=== PATIENT | male | born 1990 ===

== ENCOUNTER 2017-07-29 03:10 | Emergency (ER) | payer SELFPAY ==
[2017-07-29 03:23] VITALS: O2SAT 99
--- NOTE | 2017-07-29 03:39 | C.PDOC ---
History Of Present Illness Patient presents to the ER with a complaint of intermittent LLQ pain for the past 2 days, associated with nausea, vomiting, and diarrhea. Denies fever or chills. Time Seen by Provider: 07/29/17 03:39 Chief Complaint (Nursing): Abdominal Pain History Per: Patient History/Exam Limitations: no limitations Onset/Duration Of Symptoms: Days, Intermittent Episodes Current Symptoms Are (Timing): Still Present Severity: Moderate Pain Scale Rating Of: 4 Location Of Pain/Discomfort: LLQ Radiation Of Pain To:: None Quality Of Discomfort: Unable To Describe Associated Symptoms: Nausea, Vomiting, Diarrhea. denies: Fever, Chills Exacerbating Factors: None Alleviating Factors: None Recent travel outside of the [place]: No Past Medical History Reviewed: Historical Data, Nursing Documentation, Vital Signs Vital Signs: Last Vital Signs Temp 97.4 F L 07/29/17 06:28 Pulse 59 L 07/29/17 06:28 Resp 16 07/29/17 06:28 BP 113/71 07/29/17 06:28 Pulse Ox 99 07/29/17 06:29 Family History: States: No Known Family Hx - Social History Hx Alcohol Use: Yes Hx Substance Use: No - Immunization History Hx Tetanus Toxoid Vaccination: No Hx Influenza Vaccination: No Hx Pneumococcal Vaccination: No Review Of Systems Constitutional: Negative for: Fever, Chills Gastrointestinal: Positive for: Nausea, Vomiting, Abdominal Pain, Diarrhea Physical Exam - Physical Exam Appears: Non-toxic Skin: Warm, Dry Head: Normacephalic Oral Mucosa: Moist Chest: Symmetrical, No Tenderness Cardiovascular: Rhythm Regular Respiratory: No Rales, No Rhonchi, No Wheezing Gastrointestinal/Abdominal: Soft, Tenderness (LLQ), No Guarding, No Rebound Neurological/Psych: Oriented x3 ED Course And Treatment - Laboratory Results Result Diagrams: 07/29/17 04:25 07/29/17 04:25 O2 Sat by Pulse Oximetry: 99 (Room air) Pulse Ox Interpretation: Normal Progress Note: CT abd/pel, blood work, and urinalysis ordered. IV fluids, morphine, pepcid, toradol, and zofran administered. Disposition Counseled Patient/Family Regarding: Studies Performed, Diagnosis, Need For Followup - Disposition Disposition: HOME/ ROUTINE Disposition Time: 03:39 Condition: FAIR Forms: 99Presents (Latvian) - Clinical Impression Clinical Impression: Abdominal pain - Scribe Statement The provider has reviewed the documentation as recorded by the Scribe Tomer Coats All medical record entries made by the Scribe were at my direction and personally dictated by me. I have reviewed the chart and agree that the record accurately reflects my personal performance of the history, physical exam, medical decision making, and the department course for this patient. I have also personally directed, reviewed, and agree with the discharge instructions and disposition. Physician Patient Turnover Patient Signed Over To: Dorie Duval Handoff Comments: pending ct result and dispostion
[2017-07-29] MEDS ORDERED: Lactated Ringer's 1,000 ML IV STA (03:50)
[2017-07-29 04:29] LABS: SQUAMOUS EPITHIAL < 1 /hpf (0-5); URINE AMORPHOUS SEDIMENT RARE /ul (<OCC); URINE BILIRUBIN NEGATIVE (NEGATIVE); URINE BLOOD NEGATIVE (NEGATIVE); URINE CLARITY Hazy (Clear); URINE COLOR Yellow (YELLOW); URINE GLUCOSE (UA) NORMAL (Normal); URINE LEUKOCYTE ESTERASE NEG Leu/uL (Negative); URINE NITRATE NEGATIVE (NEGATIVE); URINE PROTEIN NEGATIVE (NEGATIVE); URINE UROBILINOGEN NORMAL mg/dL (0.2-1.0)
[2017-07-29] MEDS ORDERED: Lactated Ringer's 1,000 ML ONE (04:34)
[2017-07-29 04:35] LABS: BASO # 0.1 K/uL (0.0-0.2); BASO % 0.6 % (0.0-2.0); EOS # 0.1 K/uL (0.0-0.7); MONO # 0.6 K/uL (0.0-0.8)
[2017-07-29 04:40] LABS: ALB/GLOB RATIO 1.4 (1.0-2.1); ALBUMIN 4.2 g/dL (3.5-5.0); ALT/SGPT 41 U/L (21-72); AST/SGOT 24 U/L (17-59); BLOOD UREA NITROGEN 13 mg/dL (9-20); CALCIUM 8.7 mg/dl (8.6-10.4); GFR AFRICAN-AMERICAN > 60; GFR NON-AFRICAN AMERICAN > 60; LIPASE 120 U/L (23-300)
[2017-07-29 04:43] LABS: EOS % 1.2 % (0.0-4.0); HEMOGLOBIN 16.4 g/dL (12.0-18.0); LYMPH # 3.1 K/uL (1.0-4.3); LYMPH % 31.1 % (20.0-40.0); MEAN CELL VOLUME 89.4 fL (80.0-94.0); MEAN CORPUSCULAR HEMOGLOBIN 32.1 pg (27.0-31.0); MEAN CORPUSCULAR HGB CONC 35.9 g/dL (33.0-37.0); MEAN PLATELET VOLUME 7.9 fL (7.2-11.7); MONO % 6.1 % (0.0-10.0); NEUT # 6.2 K/uL (1.8-7.0); NRBC % 0.1 % (0.0-2.0); RBC 5.11 Mil/uL (4.40-5.90); RED CELL DISTRIBUTION WIDTH 12.9 % (11.5-14.5); WHITE BLOOD COUNT 10.1 K/uL (4.8-10.8)
[2017-07-29] MEDS ORDERED: Iohexol 350mg/ml 100 ML ONE (06:02)
[2017-07-29 06:29] VITALS: RESP 16
[2017-07-29 07:27] VITALS: BP 109/62; PULSE 65; TEMP 97.5
--- NOTE | 2017-07-29 07:39 | CT ---
EXAM: CT Abdomen and Pelvis With Intravenous Contrast EXAM DATE/TIME: 07/29/2017 4:41 AM CLINICAL HISTORY: 27 years old, male; Pain; Abdominal pain; Localized; Left lower quadrant (llq); Additional info: Llq abd pain TECHNIQUE: Axial computed tomography images of the abdomen and pelvis with intravenous contrast. All CT scans at this facility use one or more dose reduction techniques, viz.: automated exposure control; ma/kV adjustment per patient size (including targeted exams where dose is matched to indication; i.e. head); or iterative reconstruction technique. Coronal and sagittal reformatted images were created and reviewed. CONTRAST: 100 mL of heyn066 administered intravenously. COMPARISON: No relevant prior studies available. FINDINGS: LOWER THORAX: No infiltrate seen in the lung bases. ABDOMEN: LIVER: No acute abnormality of the liver identified. GALLBLADDER AND BILE DUCTS: No CT evidence of acute cholecystitis. No evidence of significant biliary ductal dilatation. PANCREAS: No CT evidence of acute pancreatitis. SPLEEN: No acute abnormality of the spleen identified. ADRENALS: No acute abnormality of the adrenal glands identified. KIDNEYS AND URETERS: Kidneys have a mildly lobulated contour bilaterally, likely due to lobation (a normal variant) versus bilateral renal cortical scarring. No evidence of hydroureteronephrosis. STOMACH AND BOWEL: Focal wall thickening of the proximal stomach. This could represent pseudo-wall thickening due to underdistention/incomplete distension versus focal gastritis.Retained stool noted throughout the colon. Otherwise, no significant abnormality of the bowel is identified. No evidence of small bowel obstruction. No evidence of diffuse colitis/pancolitis. APPENDIX: Appendix is seen, and is within normal limits in appearance. PELVIS: BLADDER: Bladder is mildly dilated. REPRODUCTIVE: No acute abnormality of the reproductive organs is seen. ABDOMEN and PELVIS: INTRAPERITONEAL SPACE: No evidence of free intraperitoneal air or fluid. BONES/JOINTS: No acute fractures or other acute bony abnormality noted. SOFT TISSUES: No acute abnormality of the visualized soft tissues is seen. VASCULATURE: No evidence of abdominal aortic aneurysm. No evidence of periaortic hemorrhage. LYMPH NODES: No evidence of diffuse lymphadenopathy. IMPRESSION: - Underdistention versus wall thickening/focal gastritis involving the proximal stomach. Recommend clinical correlation. - Otherwise, no evidence of significant acute process. - See above for remaining findings.
== END 2017-07-29 08:29 | disposition home or self-care (01) ==
LOC: C.ER 03:10
DX: R10.32 Left lower quadrant pain (principal)
CPT/HCPCS: 74177; 80053; 81001; 83690; 85025; 96361; 96374; 96375; 99285; J1885; J2270; J2405; J7120; Q9967